=== PATIENT | female | born 1970 | race Caucasian/White ===

== ENCOUNTER 2016-10-28 10:04 | Emergency (ER) | payer SELFPAY ==
[~2016-10-28] VITALS: Ht 172.7 cm; Wt 90.0 kg
[2016-10-28 10:06] VITALS: BP 122/90; PULSE 84; RESP 20; TEMP 98; O2SAT 98
[2016-10-28] MEDS ORDERED: SODIUM CHLOR 0.9% 1000 ML INJ 1,000 ML IV SCH (10:19)
--- NOTE | 2016-10-28 10:24 | PD ---
HPI Chief Complaint: Abdominal Pain Time Seen by Provider: 10:19 Travel History International Travel<30 days: No Contact w/Intl Traveler<30days: No Traveled to known affect area: No History of Present Illness HPI The patient is a 45-year-old female who presents emergency department for abdominal pain. The patient notes a three-day history of nausea, vomiting, was so scar right lower quadrant abdominal pain. The abdominal pain is sharp, constant, worse with palpation. She does have a previous history of abdominal surgeries including cholecystectomy and removal of the left fallopian tube and left ovary. She has intermittent menstrual cycles, is currently going through menopause, denies . She also complains of dark colored urine with possible blood, denies any dysuria, frequency, or urgency. She denies any current vaginal bleeding. Symptoms have been ongoing for 3 days, moderate, worse with palpation, and there are no current alleviating factors. The patient recently moved to the local area from [place] 2 weeks ago and does not have a local primary physician. She denies any fever, chills, or sweats. [facility] Past Medical History Medical History: Denies Significant Hx ?: Not Past Surgical History Abdominal Surgery: Yes Social History Alcohol Use: No Tobacco Use: Yes Substance Use: No Allergies-Medications (Allergen,Severity, Reaction): Coded Allergies: Vancomycin (Verified Allergy, Intermediate, 10/28/16) Nonsteroidal Anti-Inflammatory Agts (Verified Allergy, Mild, 10/28/16) Reported Meds & Prescriptions Reported Meds & Active Scripts Active No Active Prescriptions or Reported Medications Review of Systems Except as stated in HPI: all other systems reviewed are Neg General / Constitutional: No: Fever, Chills HENT: No: Lightheadedness Cardiovascular: No: Chest Pain or Discomfort Respiratory: No: Shortness of Breath Gastrointestinal: Positive: Nausea, Vomiting, Abdominal Pain, No: Diarrhea Genitourinary: Positive: Hematuria, No: Dysuria Physical Exam Narrative GENERAL: Awake, alert, pleasant 45-year-old female who appears her stated age and is in no acute respiratory distress. SKIN: Focused skin assessment warm/dry. HEAD: Atraumatic. Normocephalic. EYES: Pupils equal and round. No scleral icterus. No injection or drainage. ENT: No nasal bleeding or discharge. Slightly dry mucous membranes. NECK: Trachea midline. No JVD. CARDIOVASCULAR: Regular rate and rhythm. No murmur appreciated. RESPIRATORY: No accessory muscle use. Clear to auscultation. Breath sounds equal bilaterally. GASTROINTESTINAL: Abdomen soft, tender to palpation right lower quadrant. No guarding or rigidity. Well-healed midline abdominal scar. Back: No CVA tenderness. MUSCULOSKELETAL: No obvious deformities. No clubbing. No cyanosis. No edema. NEUROLOGICAL: Awake and alert. No obvious cranial nerve deficits. Motor grossly within normal limits. Normal speech. PSYCHIATRIC: Appropriate mood and affect; insight and judgment normal. Data Data Last Documented VS Vital Signs Date Time Temp Pulse Resp B/P Pulse Ox O2 Delivery O2 Flow Rate FiO2 10/28/16 12:27 16 10/28/16 10:55 95 Room Air 10/28/16 10:06 98.0 84 122/90 Orders Complete Blood Count With Diff (10/28/16 10:19) Comprehensive Metabolic Panel (10/28/16 10:19) Lipase (10/28/16 10:19) Lactic Acid (10/28/16 10:19) Urinalysis - C+S If Indicated (10/28/16 10:19) Ct Abd/Pel W/O Iv Contrast (10/28/16 10:19) Iv Access Insert/Monitor (10/28/16 10:19) Ecg Monitoring (10/28/16 10:19) Oximetry (10/28/16 10:19) Morphine Inj (Morphine Inj) (10/28/16 10:30) Ondansetron Inj (Zofran Inj) (10/28/16 10:30) Sodium Chlor 0.9% 1000 Ml Inj (Ns 1000 M (10/28/16 10:19) Sodium Chloride 0.9% Flush (Ns Flush) (10/28/16 10:30) Ed Urine Pregnancytest Poc (10/28/16 10:19) Urine Culture (10/28/16 10:53) Vascular Access Team Consult/P PRN (10/28/16 11:57) Vascular Poc Ultrasound (10/28/16 ) Ceftriaxone Inj (Rocephin Inj) (10/28/16 12:45) Labs Laboratory Tests Test 10/28/16 10/28/16 10/28/16 10:53 11:00 11:01 Urine Color YELLOW Urine Turbidity HAZY Urine pH 6.5 Urine Specific Avery 1.013 Urine Protein TRACE mg/dL Urine Glucose (UA) NEG mg/dL Urine Ketones NEG mg/dL Urine Occult Blood LARGE Urine Nitrite NEG Urine Bilirubin NEG Urine Urobilinogen LESS THAN 2.0 MG/DL Urine Leukocyte Esterase SMALL Urine RBC /hpf Urine WBC 49 /hpf Urine Squamous Epithelial 10 /hpf Cells Urine Bacteria MOD /hpf Microscopic Urinalysis Comment CULTURE INDICATED Sodium Level 137 MEQ/L Potassium Level 4.4 MEQ/L Chloride Level 107 MEQ/L Carbon Dioxide Level 23.3 MEQ/L Anion Gap 7 MEQ/L Blood Urea Nitrogen 12 MG/DL Creatinine 0.74 MG/DL Estimat Glomerular Filtration 85 ML/MIN Rate Random Glucose 84 MG/DL Calcium Level 9.3 MG/DL Total Bilirubin 0.6 MG/DL Aspartate Amino Transf 19 U/L (AST/SGOT) Alanine Aminotransferase 42 U/L (ALT/SGPT) Alkaline Phosphatase 81 U/L Total Protein 7.7 GM/DL Albumin 3.7 GM/DL Lipase 82 U/L White Blood Count 9.4 TH/MM3 Red Blood Count 5.33 MIL/MM3 Hemoglobin 15.3 GM/DL Hematocrit 46.1 % Mean Corpuscular Volume 86.6 FL Mean Corpuscular Hemoglobin 28.8 PG Mean Corpuscular Hemoglobin 33.2 % Concent Red Cell Distribution Width 14.2 % Platelet Count 146 TH/MM3 Mean Platelet Volume 10.5 FL Neutrophils (%) (Auto) 74.2 % Lymphocytes (%) (Auto) 18.3 % Monocytes (%) (Auto) 5.1 % Eosinophils (%) (Auto) 2.0 % Basophils (%) (Auto) 0.4 % Neutrophils # (Auto) 7.0 TH/MM3 Lymphocytes # (Auto) 1.7 TH/MM3 Monocytes # (Auto) 0.5 TH/MM3 Eosinophils # (Auto) 0.2 TH/MM3 Basophils # (Auto) 0.0 TH/MM3 CBC Comment DIFF FINAL Differential Comment Lactic Acid Level 1.4 mmol/L [facility] Medical Decision Making Medical Screen Exam Complete: Yes Emergency Medical Condition: Yes Medical Record Reviewed: Yes Interpretation(s) Laboratory Tests Test 10/28/16 10/28/16 10/28/16 10:53 11:00 11:01 Urine Color YELLOW Urine Turbidity HAZY Urine pH 6.5 Urine Specific Avery 1.013 Urine Protein TRACE mg/dL Urine Glucose (UA) NEG mg/dL Urine Ketones NEG mg/dL Urine Occult Blood LARGE Urine Nitrite NEG Urine Bilirubin NEG Urine Urobilinogen LESS THAN 2.0 MG/DL Urine Leukocyte Esterase SMALL Urine RBC /hpf Urine WBC 49 /hpf Urine Squamous Epithelial 10 /hpf Cells Urine Bacteria MOD /hpf Microscopic Urinalysis Comment CULTURE INDICATED Sodium Level 137 MEQ/L Potassium Level 4.4 MEQ/L Chloride Level 107 MEQ/L Carbon Dioxide Level 23.3 MEQ/L Anion Gap 7 MEQ/L Blood Urea Nitrogen 12 MG/DL Creatinine 0.74 MG/DL Estimat Glomerular Filtration 85 ML/MIN Rate Random Glucose 84 MG/DL Calcium Level 9.3 MG/DL Total Bilirubin 0.6 MG/DL Aspartate Amino Transf 19 U/L (AST/SGOT) Alanine Aminotransferase 42 U/L (ALT/SGPT) Alkaline Phosphatase 81 U/L Total Protein 7.7 GM/DL Albumin 3.7 GM/DL Lipase 82 U/L White Blood Count 9.4 TH/MM3 Red Blood Count 5.33 MIL/MM3 Hemoglobin 15.3 GM/DL Hematocrit 46.1 % Mean Corpuscular Volume 86.6 FL Mean Corpuscular Hemoglobin 28.8 PG Mean Corpuscular Hemoglobin 33.2 % Concent Red Cell Distribution Width 14.2 % Platelet Count 146 TH/MM3 Mean Platelet Volume 10.5 FL Neutrophils (%) (Auto) 74.2 % Lymphocytes (%) (Auto) 18.3 % Monocytes (%) (Auto) 5.1 % Eosinophils (%) (Auto) 2.0 % Basophils (%) (Auto) 0.4 % Neutrophils # (Auto) 7.0 TH/MM3 Lymphocytes # (Auto) 1.7 TH/MM3 Monocytes # (Auto) 0.5 TH/MM3 Eosinophils # (Auto) 0.2 TH/MM3 Basophils # (Auto) 0.0 TH/MM3 CBC Comment DIFF FINAL Differential Comment Lactic Acid Level 1.4 mmol/L Differential Diagnosis Differential diagnosis includes appendicitis, right ovarian torsion, nephrolithiasis, pyelonephritis, diverticulitis, partial small bowel obstruction. Narrative Course IV was established, labs are drawn and sent, and the patient was placed on cardiac telemetry monitoring and continuous pulse oximetry monitoring. The patient was administer morphine, Zofran, and IV fluids for her symptoms. UA was sent to lab and bedside UA test was obtained. CT of the abdomen and pelvis was ordered to rule out appendicitis/nephrolithiasis. UA has innumerable RBCs, also has WBCs, most likely hemorrhagic cystitis. CT the abdomen and pelvis reveals no evidence of nephrolithiasis active on the right side or appendicitis. The patient does appear to have some chronic changes and may need outpatient ultrasound. The patient was reevaluated, her pain had improved, however, she still had mild discomfort. Therefore, the patient was administered morphine intravenously. She will be discharged home on antiemetics , prior radium, Bactrim, and pain medications as directed. She is advised to return if symptoms worsen or progress. Diagnosis Primary Impression: Hemorrhagic cystitis Additional Impression: Abdominal pain Qualified Code: R10.30 - Lower abdominal pain Patient Instructions: General Instructions, Narcotic given in the ED Additional Instructions: Medications as directed. Follow-up with your primary physician. Return if symptoms worsen or progress. Med/Other Pt SpecificInfo: Prescription(s) given Scripts Ondansetron Odt (Zofran Odt)4 Mg Tab4 Mg SL Q6HR PRN (Nausea/Vomiting) #7 TAB Ref 0 Prov:Sher Garcia MD 10/28/16 Hydrocodone-Acetaminophen (Fifield)5-325 mg Tab1 Tab PO Q6H PRN (PAIN) #12 TAB Ref 0 Prov:Sher Garcia MD 10/28/16 Sulfamethoxazole-Trimethoprim (Bactrim DS)800-160 Mg Tab1 Tab PO BID #14 TAB Ref 0 Prov:Sher Garcia MD 10/28/16 Phenazopyridine (Pyridium)100 Mg Ycc072 Mg PO Q8H PRN (DYSURIA) 2 Days Ref 0 Prov:Shre Garcia MD 10/28/16 Disposition: 01 DISCHARGE HOME Condition: Stable Sher Garcia MD Oct 28, 2016 10:24
[2016-10-28] MEDS ORDERED: SODIUM CHLORIDE 0.9% FLUSH 10 ML FLUSH IV FLUSH PRN (10:30)
[2016-10-28] MEDS ORDERED: ONDANSETRON HCL 4 MG/2 ML VIAL IVP ONE (10:30)
[2016-10-28] MEDS ORDERED: MORPHINE SULFATE 4 MG/ML INJ IV PUSH ONE ×2 (10:30→13:00)
[2016-10-28 10:55] VITALS: O2SAT 95
[2016-10-28 11:18] LABS: BACTERIA, URINE MOD /hpf; BLOOD, URINE LARGE (NEG); COMMENT (UR) CULTURE INDICATED; CULTURE IF INDICATED CULTURE INDICATED; GLUCOSE,URINE NEG (NEG); KETONE, URINE NEG (NEG); NITRITE,URINE NEG (NEG); PH, URINE 6.5 (5.0-8.5); SQUAMOUS EPITHELIAL CELL URINE 10 /hpf (0-5); URINE COLOR YELLOW (YELLW/STRAW)
[2016-10-28 11:31] LABS: BASOPHIL % 0.4 % (0.0-2.0); EOSINOPHIL # 0.2 TH/MM3 (0-0.4); HEMATOCRIT 46.1 % (35.0-46.0); HEMO FLAGS DIFF FINAL; LYMPH % 18.3 % (9.0-44.0); LYMPHOCYTE # 1.7 TH/MM3 (1.0-4.8); MEAN CELL VOLUME 86.6 FL (80.0-100.0); MEAN CORPUSCULAR HEMOGLOBIN 28.8 PG (27.0-34.0); MEAN CORPUSCULAR HGB CONC 33.2 % (32.0-36.0); MONO % 5.1 % (0.0-8.0); NEUT % 74.2 % (16.0-70.0); PLATELET COUNT 146 TH/MM3 (150-450); RED BLOOD COUNT 5.33 MIL/MM3 (4.00-5.30); RED CELL DISTRIBUTION WIDTH 14.2 % (11.6-17.2); WHITE BLOOD COUNT 9.4 TH/MM3 (4.0-11.0)
[2016-10-28 11:52] LABS: ALT (GPT) 42 U/L (10-53); ANION GAP 7 MEQ/L (5-15); AST (GOT) 19 U/L (15-37); BICARBONATE 23.3 MEQ/L (21.0-32.0); BLOOD UREA NITROGEN 12 MG/DL (7-18); CHLORIDE 107 MEQ/L (98-107); GLOMERULAR FILTRATION RATE 85 ML/MIN (>89); POTASSIUM 4.4 MEQ/L (3.5-5.1); SODIUM (NA) 137 MEQ/L (136-145)
[2016-10-28 11:54] LABS: ALKALINE PHOSPHATASE 81 U/L (45-117); TOTAL BILIRUBIN ADULT 0.6 MG/DL (0.2-1.0)
--- NOTE | 2016-10-28 12:15 | RADRPT ---
EXAM DATE/TIME: 10/28/2016 11:47 [facility] COMPARISON: No previous studies available for comparison. INDICATIONS : Right lower abdomen pain for 3 days. ORAL CONTRAST: No oral contrast ingested. RADIATION DOSE: 9.43 CTDIvol (mGy) MEDICAL HISTORY : SURGICAL HISTORY : Cholecystectomy. Tubal ligation.Hysterectomy. ENCOUNTER: Initial ACUITY: 3 days PAIN SCALE: 4/10 LOCATION: Right lower quadrant TECHNIQUE: Volumetric scanning of the abdomen and pelvis was performed. Using automated exposure control and ad justment of the mA and/or kV according to patient size, radiation dose was kept as low as reasonably achievable to obtain optimal diagnostic quality images. FINDINGS: LOWER LUNGS: Fibrotic scarring is noted within the left lung base. LIVER: Mild hepatomegaly is noted. Homogeneous density without lesion. There is no dilation of the biliary tree. No gallstones. The patient is status post cholecystectomy. SPLEEN: Mild splenomegaly is noted. PANCREAS: Within normal limits. KIDNEYS: There is a tiny 5 mm hyperdense focus within the upper pole of the left kidney consistent with possib le tiny hyperdense cyst or faintly calcified stone. No hydronephrosis is noted. ADRENAL GLANDS: Within normal limits. VASCULAR: There is no aortic aneurysm. BOWEL/MESENTERY: The stomach, small bowel, and colon demonstrate no acute abnormality. There is no free intraperitone al air or fluid. ABDOMINAL WALL: Within normal limits. RETROPERITONEUM: There is no lymphadenopathy. BLADDER: No wall thickening or mass. REPRODUCTIVE: There is a 2.5 cm nodule in the expected region of the right side of the lower uterine segment/cervix and consistent with possible small fibroid. Outpatient pelvic ultrasound may be helpful for further evaluation if clinically indicated. INGUINAL: There is no lymphadenopathy or hernia. MUSCULOSKELETAL: Within normal limits for patient age. CONCLUSION: 1. Mild hepatosplenomegaly. 2. 5 mm hyperdense focus within the upper pole of the left kidney consistent with tiny hyperdense cys t or possible faintly calcified stone. 3. No acute obstructive uropathy. 4. 2.5 cm nodule within the right side of the lower uterine segment/cervix consistent with possible f ibroid. Outpatient pelvic ultrasound maybe helpful for further evaluation if clinically indicated. William Pritchett MD on October 28, 2016 at 12:03 Board Certified Radiologist. This report was verified electronically.
[2016-10-28] MEDS ORDERED: cefTRIAXone INJ 1,000 MG in SODIUM CHLORIDE 0.9% INJ 100 ML IV ONE (12:45)
[2016-10-28] MEDS ORDERED: SODIUM CHLORID 0.9% 500 ML INJ 500 ML IV ONE (13:00)
[2016-10-28] MEDS ORDERED: ZOFR4TAB3 SL (13:01)
[2016-10-28] MEDS ORDERED: BACT800T5 PO (13:01)
[2016-10-28] MEDS ORDERED: PHEN0.4T PO (13:01)
[2016-10-28] MEDS ORDERED: NORC5TAB PO (13:01)
[2016-10-28 14:14] VITALS: BP 109/56; PULSE 76; RESP 18; O2SAT 97
== END 2016-10-28 17:49 | disposition home or self-care (01) ==
LOC: NEPC 10:04
DX: N30.91 Cystitis, unspecified with hematuria (principal); B96.89 Other specified bacterial agents as the cause of diseases classified elsewhere
CPT/HCPCS: 74176; 80053; 81001; 83605; 83690; 84703; 85025; 87086; 96361; 96365; 96375; 99285; J0696; J2270; J2405; J7030; J7040

== ENCOUNTER 2016-11-02 10:05 | Emergency (ER) | payer SELFPAY ==
[~2016-11-02] VITALS: Ht 165.1 cm; Wt 65.0 kg
[~2016-11-02 10:05] MED LIST: BACT800T5 PO; NORC5TAB PO; PHEN0.4T PO; ZOFR4TAB3 SL
[2016-11-02 10:13] VITALS: BP 122/85; PULSE 75; RESP 16; TEMP 98.1; O2SAT 97
--- NOTE | 2016-11-02 11:58 | PD ---
HPI Chief Complaint: Abdominal Pain Time Seen by Provider: 11:21 Travel History International Travel<30 days: No Contact w/Intl Traveler<30days: No Traveled to known affect area: No History of Present Illness HPI 45yo F with no PMH presents to the ED with c/o suprapubic abdominal pain since yesterday. NBNB vomiting. Pt was seen at [facility] on 10/28/16 for hemorrhagic cystitis. States her hematuria has resolved. Denies any fever, chest pain, sob , diarrhea, dysuria, vaginal bleeding or discharge. Last BM normal today. PFSH Past Medical History Medical History: Denies Significant Hx Diminished Hearing: No Influenza Vaccination: No ?: Not LMP: 09/18/2016 : 5 Para: 4 Miscarriage: 1 Ovarian Cysts: Yes (rupture) Tubal Ligation: Yes Past Surgical History Abdominal Surgery: Yes Cholecystectomy: Yes Gynecologic Surgery: Yes (left ovary and fallopian tube removal) Social History Alcohol Use: No Tobacco Use: Yes (1 ppd) Substance Use: No Allergies-Medications (Allergen,Severity, Reaction): Coded Allergies: Vancomycin (Verified Allergy, Intermediate, 11/02/16) Nonsteroidal Anti-Inflammatory Agts (Verified Allergy, Mild, 11/02/16) Reported Meds & Prescriptions Reported Meds & Active Scripts Active No Active Prescriptions or Reported Medications Review of Systems Except as stated in HPI: all other systems reviewed are Neg Physical Exam Narrative GENERAL: 45yo F not in distress. SKIN: Focused skin assessment warm/dry. HEAD: Atraumatic. Normocephalic. CARDIOVASCULAR: Regular rate and rhythm. No murmur appreciated. RESPIRATORY: No accessory muscle use. Clear to auscultation. Breath sounds equal bilaterally. GASTROINTESTINAL: Abdomen soft, +Suprapubic ttp. No rebound tenderness or guarding. MUSCULOSKELETAL: No obvious deformities. No clubbing. No cyanosis. No edema. NEUROLOGICAL: Awake and alert. No obvious cranial nerve deficits. Motor grossly within normal limits. Normal speech. PSYCHIATRIC: Appropriate mood and affect; insight and judgment normal. Data Data Last Documented VS Vital Signs Date Time Temp Pulse Resp B/P Pulse Ox O2 Delivery O2 Flow Rate FiO2 11/02/16 12:59 96 Room Air 11/02/16 10:13 98.1 75 16 122/85 Orders Complete Blood Count With Diff (11/02/16 11:49) Comprehensive Metabolic Panel (11/02/16 11:49) Lipase (11/02/16 11:49) Urinalysis - C+S If Indicated (11/02/16 11:49) Iv Access Insert/Monitor (11/02/16 11:49) Ecg Monitoring (11/02/16 11:49) Oximetry (11/02/16 11:49) Morphine Inj (Morphine Inj) (11/02/16 12:00) Ondansetron Inj (Zofran Inj) (11/02/16 12:00) Sodium Chloride 0.9% Flush (Ns Flush) (11/02/16 12:00) Vascular Access Team Consult/P PRN (11/02/16 11:50) Vascular Poc Ultrasound (11/02/16 ) Labs Laboratory Tests Test 11/02/16 11/02/16 12:45 12:50 Urine Color YELLOW Urine Turbidity HAZY Urine pH 6.5 Urine Specific [place] 1.016 Urine Protein NEG mg/dL Urine Glucose (UA) NEG mg/dL Urine Ketones NEG mg/dL Urine Occult Blood NEG Urine Nitrite NEG Urine Bilirubin NEG Urine Urobilinogen LESS THAN 2.0 MG/DL Urine Leukocyte Esterase NEG Urine WBC 2 /hpf Urine Squamous Epithelial 8 /hpf Cells Urine Bacteria OCC /hpf Urine Mucus FEW /lpf Microscopic Urinalysis Comment CULT NOT INDICATED White Blood Count 6.1 TH/MM3 Red Blood Count 4.74 MIL/MM3 Hemoglobin 13.8 GM/DL Hematocrit 40.9 % Mean Corpuscular Volume 86.4 FL Mean Corpuscular Hemoglobin 29.1 PG Mean Corpuscular Hemoglobin 33.7 % Concent Red Cell Distribution Width 13.4 % Platelet Count 160 TH/MM3 Mean Platelet Volume 10.2 FL Neutrophils (%) (Auto) 57.5 % Lymphocytes (%) (Auto) 32.4 % Monocytes (%) (Auto) 6.3 % Eosinophils (%) (Auto) 3.1 % Basophils (%) (Auto) 0.7 % Neutrophils # (Auto) 3.5 TH/MM3 Lymphocytes # (Auto) 2.0 TH/MM3 Monocytes # (Auto) 0.4 TH/MM3 Eosinophils # (Auto) 0.2 TH/MM3 Basophils # (Auto) 0.0 TH/MM3 CBC Comment DIFF FINAL Differential Comment Sodium Level 140 MEQ/L Potassium Level 3.7 MEQ/L Chloride Level 105 MEQ/L Carbon Dioxide Level 28.3 MEQ/L Anion Gap 7 MEQ/L Blood Urea Nitrogen 8 MG/DL Creatinine 0.74 MG/DL Estimat Glomerular Filtration 85 ML/MIN Rate Random Glucose 84 MG/DL Calcium Level 9.1 MG/DL Total Bilirubin 1.1 MG/DL Aspartate Amino Transf 18 U/L (AST/SGOT) Alanine Aminotransferase 29 U/L (ALT/SGPT) Alkaline Phosphatase 76 U/L Total Protein 7.7 GM/DL Albumin 3.8 GM/DL Lipase 65 U/L [facility] Medical Decision Making Medical Screen Exam Complete: Yes Emergency Medical Condition: Yes Differential Diagnosis Cystitis vs. colitis Narrative Course 45yo F with lower abdominal pain. Pt was just here 10/28/16 and had a CTa/p that showed 2.5cm nodule in right uterine segment that may be possible fibroid. Outpatient pelvic ultrasound may be helpful. Pt given morphine and zofran and reevaluated at bedside. States pain has improved. Pt no longer nauseous and tolerating PO. Labs reviewed, no leukocytosis. Lipase normal. LFTs normal. Bilirubin mildly elevated at 1.1. UA showed no leukocyte or nitrite. Pt is well appearing and vital signs normal. Instructed pt to follow up with [facility] as outpatient. Diagnosis Primary Impression: Abdominal pain Qualified Code: R10.30 - Lower abdominal pain Patient Instructions: General Instructions Departure Forms: Tests/Procedures Additional Instructions: Please follow up with [facility]. Return to the ED if symptoms worsen. Med/Other Pt SpecificInfo: Prescription(s) given Scripts No Active Prescriptions or Reported Meds Disposition: 01 DISCHARGE HOME Condition: Stable Gretta Martinez DO Nov 02, 2016 11:57
[2016-11-02] MEDS ORDERED: ONDANSETRON HCL 4 MG/2 ML VIAL IVP ONE (12:00)
[2016-11-02] MEDS ORDERED: MORPHINE SULFATE 4 MG/ML INJ IV PUSH ONE (12:00)
[2016-11-02] MEDS ORDERED: SODIUM CHLORIDE 0.9% FLUSH 10 ML FLUSH IV FLUSH PRN (12:00)
[2016-11-02 12:59] VITALS: O2SAT 96
[2016-11-02 13:07] LABS: AUTOMATED NEUTROPHIL # 3.5 TH/MM3 (1.8-7.7); BASOPHIL % 0.7 % (0.0-2.0); EOSINOPHIL # 0.2 TH/MM3 (0-0.4); EOSINOPHIL % 3.1 % (0.0-4.0); HEMATOCRIT 40.9 % (35.0-46.0); HEMO FLAGS DIFF FINAL; LYMPH % 32.4 % (9.0-44.0); MEAN CELL VOLUME 86.4 FL (80.0-100.0); MEAN CORPUSCULAR HEMOGLOBIN 29.1 PG (27.0-34.0); MEAN CORPUSCULAR HGB CONC 33.7 % (32.0-36.0); MONO % 6.3 % (0.0-8.0); NEUT % 57.5 % (16.0-70.0); PLATELET COUNT 160 TH/MM3 (150-450); RED BLOOD COUNT 4.74 MIL/MM3 (4.00-5.30); RED CELL DISTRIBUTION WIDTH 13.4 % (11.6-17.2); WHITE BLOOD COUNT 6.1 TH/MM3 (4.0-11.0)
[2016-11-02 13:25] LABS: BACTERIA, URINE OCC /hpf; BLOOD, URINE NEG (NEG); COMMENT (UR) CULT NOT INDICATED; CULTURE IF INDICATED CULT NOT INDICATED; GLUCOSE,URINE NEG (NEG); KETONE, URINE NEG (NEG); MUCUS URINE FEW /lpf (OCC); NITRITE,URINE NEG (NEG); PH, URINE 6.5 (5.0-8.5); SQUAMOUS EPITHELIAL CELL URINE 8 /hpf (0-5); URINE COLOR YELLOW (YELLW/STRAW)
[2016-11-02 13:27] LABS: ANION GAP 7 MEQ/L (5-15); AST (GOT) 18 U/L (15-37); BICARBONATE 28.3 MEQ/L (21.0-32.0); BLOOD UREA NITROGEN 8 MG/DL (7-18); CHLORIDE 105 MEQ/L (98-107); GLOMERULAR FILTRATION RATE 85 ML/MIN (>89); POTASSIUM 3.7 MEQ/L (3.5-5.1); SODIUM (NA) 140 MEQ/L (136-145)
[2016-11-02 13:30] LABS: ALKALINE PHOSPHATASE 76 U/L (45-117); ALT (GPT) 29 U/L (10-53); TOTAL BILIRUBIN ADULT 1.1 MG/DL (0.2-1.0)
[2016-11-02 15:34] VITALS: BP 107/70; PULSE 64; RESP 15; O2SAT 97
== END 2016-11-02 15:50 | disposition home or self-care (01) ==
LOC: NEPC 10:05
DX: R10.33 Periumbilical pain (principal); F17.210 Nicotine dependence, cigarettes, uncomplicated
CPT/HCPCS: 80053; 81001; 83690; 85025; 96374; 96375; 99284; J2270; J2405

== ENCOUNTER 2016-11-27 11:11 | Emergency (ER) | payer SELFPAY ==
[~2016-11-27] VITALS: Ht 172.7 cm; Wt 85.0 kg
[2016-11-27 11:13] VITALS: BP 110/77; PULSE 82; RESP 16; TEMP 98.2; O2SAT 100
[2016-11-27] MEDS ORDERED: TYLE325T PO (11:35)
[2016-11-27] MEDS ORDERED: PRED20 PO (11:40)
[2016-11-27] MEDS ORDERED: ROBA500T PO (11:40)
--- NOTE | 2016-11-27 11:41 | PD ---
HPI Chief Complaint: Pain: Acute or Chronic Time Seen by Provider: 11:15 Travel History International Travel<30 days: No Contact w/Intl Traveler<30days: No Traveled to known affect area: No History of Present Illness HPI 46-year-old female presents emergency department for evaluation of the left shoulder pain. Symptom onset 3 days. Patient reports history of arthritis and tendinitis in the right shoulder and reports this pain is similar to that. She reports the pain is worse with range of motion of the left arm. The pain is unrelieved with [id number] Tylenol. She denies injury or trauma. She denies chest pain, shortness of breath, nausea, vomiting, diaphoresis. PFSH Past Medical History Narrative Medical History of arthritis Diminished Hearing: No ?: Not : 5 Para: 4 Miscarriage: 1 Ovarian Cysts: Yes (rupture) Tubal Ligation: Yes Past Surgical History Abdominal Surgery: Yes Cholecystectomy: Yes Gynecologic Surgery: Yes (left ovary and fallopian tube removal) Social History Alcohol Use: No Tobacco Use: Yes (1 ppd) Substance Use: No Allergies-Medications (Allergen,Severity, Reaction): Coded Allergies: Vancomycin (Verified Allergy, Intermediate, 11/02/16) Nonsteroidal Anti-Inflammatory Agts (Verified Allergy, Mild, 11/02/16) Reported Meds & Prescriptions Reported Meds & Active Scripts Active No Active Prescriptions or Reported Medications Review of Systems Except as stated in HPI: all other systems reviewed are Neg General / Constitutional: No: Fever Eyes: No: Visual changes HENT: No: Headaches Cardiovascular: No: Chest Pain or Discomfort Respiratory: No: Shortness of Breath Gastrointestinal: No: Abdominal Pain Genitourinary: No: Dysuria Musculoskeletal: Positive: Other (left shoulder pain) Skin: No Rash Neurologic: No: Weakness Physical Exam Narrative GENERAL: Alert, well-appearing female no acute distress. SKIN: Focused skin assessment warm/dry. HEAD: Atraumatic. Normocephalic. EYES: Pupils equal and round. No scleral icterus. No injection or drainage. ENT: No nasal bleeding or discharge. Mucous membranes pink and moist. NECK: Trachea midline. No JVD. CARDIOVASCULAR: Regular rate and rhythm. No murmur appreciated. RESPIRATORY: No accessory muscle use. Clear to auscultation. Breath sounds equal bilaterally. GASTROINTESTINAL: Abdomen soft, non-tender, nondistended. Hepatic and splenic margins not palpable. MUSCULOSKELETAL: No obvious deformities. No clubbing. No cyanosis. No edema. Left shoulder: The joint is mildly tender to palpation. Patient has pain with range of motion of the left shoulder. No deformity. 2+ distal pulses. NEUROLOGICAL: Awake and alert. No obvious cranial nerve deficits. Motor grossly within normal limits. Normal speech. PSYCHIATRIC: Appropriate mood and affect; insight and judgment normal. Data Data Last Documented VS Vital Signs Date Time Temp Pulse Resp B/P Pulse Ox O2 Delivery O2 Flow Rate FiO2 11/27/16 11:13 98.2 82 16 110/77 100 MDM Medical Decision Making Medical Screen Exam Complete: Yes Emergency Medical Condition: Yes Differential Diagnosis Arthritis, tendinitis, strain Narrative Course 46-year-old female with three-day history of left shoulder pain. Patient reports this pain is similar to her arthritis in her right shoulder. The pain is reproducible with palpation and range of motion of the joint. I do not suspect that this is cardiac in nature. Patient reports symptoms are unrelieved with [id number] Tylenol. She has had symptom relief in the past with steroids and muscle relaxers. On exam patient has reproducible pain in the left shoulder as well as tenderness over the left trapezius muscle. Patient will be treated for probable left shoulder arthritis and trapezius muscle spasm. Return precautions discussed. Patient verbalizes understanding Diagnosis Primary Impression: Left shoulder pain Qualified Code: M25.512 - Acute pain of left shoulder Referrals: Primary Care Physician Additional Instructions: Use a sling as needed for comfort. Take the medications as prescribed. Follow-up with her primary care doctor for reevaluation. Return to the emergency department if he developed new or worsening symptoms. Scripts Methocarbamol (Robaxin)500 Mg [id number] Mg PO TID PRN (MUSCLE SPASM) #12 TAB Prov:Charlette Vee 11/27/16 Prednisone 20 Mg Tab40 Mg PO DAILY #10 TAB Take 40 mg (2 tablets) daily for 5 days Prov:Charlette Vee 11/27/16 Disposition: 01 DISCHARGE HOME Condition: Stable Charlette Vee Nov 27, 2016 11:41
[2016-11-27] MEDS ORDERED: ORPHENADRINE INJ 60 MG/2 ML AMP IM ONE (11:45)
== END 2016-11-27 12:04 | disposition home or self-care (01) ==
LOC: NEPK 11:11
DX: M25.512 Pain in left shoulder (principal); F17.210 Nicotine dependence, cigarettes, uncomplicated; M19.90 Unspecified osteoarthritis, unspecified site
CPT/HCPCS: 96372; 99284; J2360

== ENCOUNTER 2016-12-05 09:25 | Emergency (ER) | payer SELFPAY ==
[~2016-12-05] VITALS: Ht 175.3 cm; Wt 85.0 kg
[~2016-12-05 09:25] MED LIST changes: -BACT800T5 PO; -NORC5TAB PO; -PHEN0.4T PO; +PRED20 PO; +ROBA500T PO; +TYLE325T PO; -ZOFR4TAB3 SL
[2016-12-05 09:26] VITALS: BP 114/81; PULSE 106; RESP 20; TEMP 98.4; O2SAT 98
[2016-12-05] MEDS ORDERED: ONDANSETRON HCL 4 MG/2 ML VIAL IVP ONE (09:45)
[2016-12-05] MEDS ORDERED: SODIUM CHLORIDE 0.9% FLUSH 10 ML FLUSH IV FLUSH PRN (09:45)
[2016-12-05] MEDS ORDERED: MORPHINE SULFATE 8 MG/ML INJ IV PUSH ONE (10:15)
[2016-12-05] MEDS ORDERED: SODIUM CHLOR 0.9% 1000 ML INJ 1,000 ML IV ONE (10:15)
--- NOTE | 2016-12-05 10:16 | PD ---
HPI Chief Complaint: GI Complaint Time Seen by Provider: 09:35 Travel History International Travel<30 days: No Contact w/Intl Traveler<30days: No Traveled to known affect area: No History of Present Illness HPI 46-year-old female with history of cholecystectomy, bilateral tubal ligation, left salpingectomy oophorectomy here with complaint of abdominal pain. Patient has had 4 days of nausea, vomiting. 2 days of epigastric abdominal pain that radiates slightly to the right upper quadrant. She has also had dark urine, questionable hematuria. Per chart review, patient was seen here twice in October with similar complaints. Patient states that this does feel similar to history. She has not had any fevers, chills. She recently moved from [place] to [place]. She has been living with friends/family. She had medicated [place], but lost it when she moved but has already applied for [place] Medicaid. PFS Past Medical History Diminished Hearing: No ?: Not : 5 Para: 4 Miscarriage: 1 Ovarian Cysts: Yes (rupture) Tubal Ligation: Yes Past Surgical History Abdominal Surgery: Yes Cholecystectomy: Yes Gynecologic Surgery: Yes (left ovary and fallopian tube removal) Social History Alcohol Use: No Tobacco Use: Yes (1 ppd) Substance Use: No Allergies-Medications (Allergen,Severity, Reaction): Coded Allergies: Vancomycin (Verified Allergy, Intermediate, 11/27/16) Nonsteroidal Anti-Inflammatory Agts (Verified Allergy, Mild, 11/27/16) Reported Meds & Prescriptions Reported Meds & Active Scripts Active No Active Prescriptions or Reported Medications Review of Systems Except as stated in HPI: all other systems reviewed are Neg Physical Exam Narrative GENERAL: Well-appearing female in no acute distress SKIN: Focused skin assessment warm/dry. HEAD: Normocephalic. EYES: No scleral icterus. No injection or drainage. ENT: Mucous membranes pink and moist. NECK: Supple CARDIOVASCULAR: Regular rate and rhythm. No murmur appreciated. RESPIRATORY: No accessory muscle use. Clear to auscultation. Breath sounds equal bilaterally. GASTROINTESTINAL: Abdomen soft, epigastric abdominal tenderness to palpation without rebound or guarding, nondistended. No CVA tenderness palpation MUSCULOSKELETAL: No obvious deformities. No edema. NEUROLOGICAL: Awake and alert. Normal speech. PSYCHIATRIC: Appropriate mood and affect; insight and judgment normal. Data Data Last Documented VS Vital Signs Date Time Temp Pulse Resp B/P Pulse Ox O2 Delivery O2 Flow Rate FiO2 7/22/17 09:44 Room Air 12/05/16 09:26 98.4 106 20 114/81 98 Orders Complete Blood Count With Diff (12/05/16 09:43) Comprehensive Metabolic Panel (12/05/16 09:43) Lipase (12/05/16 09:43) Urinalysis - C+S If Indicated (12/05/16 09:43) Iv Access Insert/Monitor (12/05/16 09:43) Oximetry (12/05/16 09:43) Ondansetron Inj (Zofran Inj) (12/05/16 09:45) Sodium Chloride 0.9% Flush (Ns Flush) (12/05/16 09:45) Ed Urine Pregnancytest Poc (12/05/16 09:43) Morphine Inj (Morphine Inj) (12/05/16 10:15) Sodium Chlor 0.9% 1000 Ml Inj (Ns 1000 M (12/05/16 10:15) Labs Laboratory Tests Test 12/05/16 10:05 White Blood Count 9.1 TH/MM3 Red Blood Count 4.73 MIL/MM3 Hemoglobin 14.1 GM/DL Hematocrit 40.3 % Mean Corpuscular Volume 85.3 FL Mean Corpuscular Hemoglobin 29.7 PG Mean Corpuscular Hemoglobin 34.9 % Concent Red Cell Distribution Width 13.0 % Platelet Count 178 TH/MM3 Mean Platelet Volume 9.5 FL Neutrophils (%) (Auto) 76.1 % Lymphocytes (%) (Auto) 17.5 % Monocytes (%) (Auto) 4.6 % Eosinophils (%) (Auto) 1.3 % Basophils (%) (Auto) 0.5 % Neutrophils # (Auto) 6.9 TH/MM3 Lymphocytes # (Auto) 1.6 TH/MM3 Monocytes # (Auto) 0.4 TH/MM3 Eosinophils # (Auto) 0.1 TH/MM3 Basophils # (Auto) 0.0 TH/MM3 CBC Comment DIFF FINAL Differential Comment MDM Medical Decision Making Medical Screen Exam Complete: Yes Emergency Medical Condition: Yes Medical Record Reviewed: Yes Differential Diagnosis 46-year-old female with 4 days of nausea vomiting and 2 days of epigastric abdominal pain. Differential includes enteritis, pancreatitis, hepatobiliary pathology, peptic ulcer, recurrent tonic abdominal pain, UTI, ureterolithiasis. Her abdominal examination is benign making peritoneal pathology less likely. Narrative Course Patient placed on monitor, IV established and blood obtained. Given 1 L normal saline bolus, 4 mg Zofran, 4 mg morphine. Urine test was negative. CBC, CMP, lipase, urinalysis notable for markedly hematuria with some white cells. We'll treat for hemorrhagic cystitis. Patient was given outpatient referral to establish care here locally. Diagnosis Primary Impression: Hemorrhagic cystitis Referrals: [facility] call for appointment This is a clinic that sees patient's with and without insurance Additional Instructions: Finish antibiotics as prescribed. Nausea medications as needed. Follow-up with primary care physician to establish care as discussed. Med/Other Pt SpecificInfo: Prescription(s) given Scripts Promethazine (Phenergan)25 Mg [id number] Mg PO Q6H PRN (NAUSEA OR VOMITING) #10 TAB Ref 0 Prov:Sarah Osman MD 12/05/16 Ciprofloxacin (Cipro)250 Mg [id number] Mg PO BID 7 Days Ref 0 Prov:Sarah Osman MD 12/05/16 Disposition: 01 DISCHARGE HOME Condition: Stable Sarah Osman MD Dec 05, 2016 10:16
[2016-12-05 10:36] LABS: AUTOMATED NEUTROPHIL # 6.9 TH/MM3 (1.8-7.7); BASOPHIL % 0.5 % (0.0-2.0); EOSINOPHIL # 0.1 TH/MM3 (0-0.4); EOSINOPHIL % 1.3 % (0.0-4.0); HEMATOCRIT 40.3 % (35.0-46.0); HEMO FLAGS DIFF FINAL; LYMPH % 17.5 % (9.0-44.0); LYMPHOCYTE # 1.6 TH/MM3 (1.0-4.8); MEAN CELL VOLUME 85.3 FL (80.0-100.0); MEAN CORPUSCULAR HEMOGLOBIN 29.7 PG (27.0-34.0); MEAN CORPUSCULAR HGB CONC 34.9 % (32.0-36.0); MONO % 4.6 % (0.0-8.0); NEUT % 76.1 % (16.0-70.0); PLATELET COUNT 178 TH/MM3 (150-450); RED BLOOD COUNT 4.73 MIL/MM3 (4.00-5.30); WHITE BLOOD COUNT 9.1 TH/MM3 (4.0-11.0)
[2016-12-05 11:04] LABS: ALKALINE PHOSPHATASE 75 U/L (45-117)
[2016-12-05 11:04] LABS: BACTERIA, URINE RARE /hpf; BLOOD, URINE MOD (NEG); COMMENT (UR) CULT NOT INDICATED; CULTURE IF INDICATED CULT NOT INDICATED; GLUCOSE,URINE NEG (NEG); KETONE, URINE NEG (NEG); MUCUS URINE FEW /lpf (OCC); NITRITE,URINE NEG (NEG); PH, URINE 6.5 (5.0-8.5); SQUAMOUS EPITHELIAL CELL URINE 1 /hpf (0-5); TRANSITIONAL EPI CELLS, URINE <1 /hpf; URINE COLOR YELLOW (YELLW/STRAW)
[2016-12-05 11:06] LABS: ALT (GPT) 15 U/L (10-53); ANION GAP 9 MEQ/L (5-15); AST (GOT) 18 U/L (15-37); BLOOD UREA NITROGEN 10 MG/DL (7-18); CHLORIDE 106 MEQ/L (98-107); GLOMERULAR FILTRATION RATE 76 ML/MIN (>89); POTASSIUM 4.1 MEQ/L (3.5-5.1); SODIUM (NA) 140 MEQ/L (136-145)
[2016-12-05] MEDS ORDERED: CIPR250T52 PO (11:12)
[2016-12-05] MEDS ORDERED: PROM25TA10 PO (11:12)
== END 2016-12-05 11:24 | disposition home or self-care (01) ==
LOC: NEPD 09:25
DX: N30.91 Cystitis, unspecified with hematuria (principal)
CPT/HCPCS: 80053; 81001; 83690; 84703; 85025; 96374; 96375; 99284; J2270; J2405; J7030

== ENCOUNTER 2016-12-30 12:23 | Emergency (ER) | payer SELFPAY ==
[~2016-12-30] VITALS: Ht 175.3 cm; Wt 84.0 kg
[~2016-12-30 12:23] MED LIST changes: +CIPR250T52 PO; -PRED20 PO; +PROM25TA10 PO; -ROBA500T PO; -TYLE325T PO
[2016-12-30 12:29] VITALS: BP 123/83; PULSE 86; RESP 18; TEMP 98.2; O2SAT 96
--- NOTE | 2016-12-30 12:44 | PD ---
Physical Exam Date Seen by Provider: Dec 30, 2016 Time Seen by Provider: 12:43 Narrative 46 YOWF C/O R FLANK PAIN SINCE YEST WITH ASSOC N/V. NO FEVER OR URINARY SYMPTOMS. PAIN 12/24 VS REVIEWED PT WAITING FOR BED PLACEMENT. Data Data Last Documented VS Vital Signs Date Time Temp Pulse Resp B/P Pulse Ox O2 Delivery O2 Flow Rate FiO2 12/30/16 12:29 98.2 86 18 123/83 96 Room Air MDM Supervised Visit with [place]: Chadd Clark Dec 30, 2016 12:44
[2016-12-30 13:34] LABS: BACTERIA, URINE OCC /hpf; BLOOD, URINE MOD (NEG); COMMENT (UR) CULT NOT INDICATED; CULTURE IF INDICATED CULT NOT INDICATED; GLUCOSE,URINE NEG (NEG); KETONE, URINE NEG (NEG); NITRITE,URINE NEG (NEG); PH, URINE 8.5 (5.0-8.5); SQUAMOUS EPITHELIAL CELL URINE 37 /hpf (0-5); URINE COLOR YELLOW (YELLW/STRAW)
[2016-12-30] MEDS ORDERED: SODIUM CHLOR 0.9% 1000 ML INJ 1,000 ML IV SCH (13:40)
[2016-12-30] MEDS ORDERED: SODIUM CHLORIDE 0.9% FLUSH 10 ML FLUSH IV FLUSH PRN (13:45)
[2016-12-30] MEDS ORDERED: MORPHINE SULFATE 4 MG/ML INJ IV PUSH ONE (13:45)
[2016-12-30] MEDS ORDERED: ONDANSETRON HCL 4 MG/2 ML VIAL IVP ONE (13:45)
--- NOTE | 2016-12-30 13:51 | PD ---
HPI Chief Complaint: Complaint Time Seen by Provider: 13:32 Travel History International Travel<30 days: No Contact w/Intl Traveler<30days: No Traveled to known affect area: No History of Present Illness HPI Patient is a 46-year-old female who presents to emergency room with complaints of right-sided flank pain. Patient reports that since last night, she has had increased right sided flank pain,, denies urinary urgency or frequency. She reports that sometimes this pain radiates to the front of her abdomen. Patient denies any trauma, denies any fall. Patient denies history of kidney stones in the past. Reports that she is feeling nauseous with her symptoms. Patient with no other complaints. PFSH Past Medical History Medical History: Denies Significant Hx Diminished Hearing: No ?: Not LMP: 12/17/16 : 5 Para: 4 Miscarriage: 1 Ovarian Cysts: Yes (rupture) Tubal Ligation: Yes Past Surgical History Abdominal Surgery: Yes Cholecystectomy: Yes Gynecologic Surgery: Yes (left ovary and fallopian tube removal) Social History Alcohol Use: No Tobacco Use: Yes (1 ppd) Substance Use: No Allergies-Medications (Allergen,Severity, Reaction): Coded Allergies: vancomycin (Unverified Allergy, Intermediate, 12/29/16) diclofenac (Unverified Allergy, Mild, 12/29/16) etodolac (Unverified Allergy, Mild, 12/29/16) flurbiprofen (Unverified Allergy, Mild, 12/29/16) ibuprofen (Unverified Allergy, Mild, 12/29/16) indomethacin (Unverified Allergy, Mild, 12/29/16) ketoprofen (Unverified Allergy, Mild, 12/29/16) ketorolac (Unverified Allergy, Mild, 12/29/16) naproxen (Unverified Allergy, Mild, 12/29/16) oxaprozin (Unverified Allergy, Mild, 12/29/16) Reported Meds & Prescriptions Reported Meds & Active Scripts Active No Active Prescriptions or Reported Medications Review of Systems General / Constitutional: No: Fever Eyes: No: Visual changes HENT: No: Headaches Cardiovascular: No: Chest Pain or Discomfort Respiratory: No: Shortness of Breath Gastrointestinal: Positive: Nausea, Abdominal Pain Genitourinary: Positive: Flank Pain, No: Urgency, Frequency, Dysuria Musculoskeletal: No: Pain Skin: No Rash Neurologic: No: Weakness Psychiatric: No: Depression Endocrine: No: Polydipsia Hematologic/Lymphatic: No: Easy Bruising Physical Exam Narrative GENERAL: moderate distress SKIN: Focused skin assessment warm/dry. HEAD: Atraumatic. Normocephalic. EYES: Pupils equal and round. No scleral icterus. No injection or drainage. ENT: No nasal bleeding or discharge. Mucous membranes pink and moist. NECK: Trachea midline. No JVD. CARDIOVASCULAR: Regular rate and rhythm. No murmur appreciated. RESPIRATORY: No accessory muscle use. Clear to auscultation. Breath sounds equal bilaterally. GASTROINTESTINAL: Abdomen soft, non-tender, nondistended. patient with right sided flank pain MUSCULOSKELETAL: No obvious deformities. No clubbing. No cyanosis. No edema. NEUROLOGICAL: Awake and alert. No obvious cranial nerve deficits. Motor grossly within normal limits. Normal speech. PSYCHIATRIC: Appropriate mood and affect; insight and judgment normal. Data Data Last Documented VS Vital Signs Date Time Temp Pulse Resp B/P Pulse Ox O2 Delivery O2 Flow Rate FiO2 12/30/16 14:20 97 Room Air 12/30/16 14:00 79 17 96/62 12/30/16 12:29 98.2 Orders Complete Blood Count With Diff (12/30/16 12:47) Urinalysis - C+S If Indicated (12/30/16 12:47) Comprehensive Metabolic Panel (12/30/16 13:40) Lipase (12/30/16 13:40) Prothrombin Time / Inr (Pt) (12/30/16 13:40) Act Partial Throm Time (Ptt) (12/30/16 13:40) Ct Abd/Pel W/O Iv Contrast (12/30/16 13:40) Iv Access Insert/Monitor (12/30/16 13:40) Ecg Monitoring (12/30/16 13:40) Oximetry (12/30/16 13:40) Morphine Inj (Morphine Inj) (12/30/16 13:45) Ondansetron Inj (Zofran Inj) (12/30/16 13:45) Sodium Chlor 0.9% 1000 Ml Inj (Ns 1000 M (12/30/16 13:40) Sodium Chloride 0.9% Flush (Ns Flush) (12/30/16 13:45) Fentanyl Inj (Fentanyl Inj) (12/30/16 14:15) Vascular Access Team Consult/P PRN (12/30/16 14:29) Vascular Poc Ultrasound (12/30/16 ) Oxycodone-Acetamin 5-325 Mg (Percocet (12/30/16 15:00) Ondansetron Inj (Zofran Inj) (12/30/16 15:15) Labs Laboratory Tests Test 12/30/16 12/30/16 13:00 13:45 Urine Color YELLOW Urine Turbidity HAZY Urine pH 8.5 Urine Specific [place] 1.021 Urine Protein 30 mg/dL Urine Glucose (UA) NEG mg/dL Urine Ketones NEG mg/dL Urine Occult Blood MOD Urine Nitrite NEG Urine Bilirubin NEG Urine Urobilinogen 2.0 MG/DL Urine Leukocyte Esterase SMALL Urine RBC /hpf Urine WBC 7 /hpf Urine Squamous Epithelial 37 /hpf Cells Urine Bacteria OCC /hpf Microscopic Urinalysis Comment CULT NOT INDICATED White Blood Count 7.9 TH/MM3 Red Blood Count 4.89 MIL/MM3 Hemoglobin 14.0 GM/DL Hematocrit 42.0 % Mean Corpuscular Volume 85.9 FL Mean Corpuscular Hemoglobin 28.6 PG Mean Corpuscular Hemoglobin 33.3 % Concent Red Cell Distribution Width 13.6 % Platelet Count 182 TH/MM3 Mean Platelet Volume 8.5 FL Neutrophils (%) (Auto) 75.3 % Lymphocytes (%) (Auto) 17.6 % Monocytes (%) (Auto) 5.2 % Eosinophils (%) (Auto) 1.4 % Basophils (%) (Auto) 0.5 % Neutrophils # (Auto) 6.0 TH/MM3 Lymphocytes # (Auto) 1.4 TH/MM3 Monocytes # (Auto) 0.4 TH/MM3 Eosinophils # (Auto) 0.1 TH/MM3 Basophils # (Auto) 0.0 TH/MM3 CBC Comment DIFF FINAL Differential Comment Prothrombin Time 11.4 SEC Prothromb Time International 1.0 RATIO Ratio Activated Partial 33.5 SEC Thromboplast Time Sodium Level 137 MEQ/L Potassium Level 4.0 MEQ/L Chloride Level 106 MEQ/L Carbon Dioxide Level 24.3 MEQ/L Anion Gap 7 MEQ/L Blood Urea Nitrogen 6 MG/DL Creatinine 0.83 MG/DL Estimat Glomerular Filtration 74 ML/MIN Rate Random Glucose 88 MG/DL Calcium Level 9.0 MG/DL Total Bilirubin 0.7 MG/DL Aspartate Amino Transf 16 U/L (AST/SGOT) Alanine Aminotransferase 15 U/L (ALT/SGPT) Alkaline Phosphatase 63 U/L Total Protein 7.5 GM/DL Albumin 3.5 GM/DL Lipase 41 U/L MDM Medical Decision Making Medical Screen Exam Complete: Yes Emergency Medical Condition: Yes Interpretation(s) Vital Signs Date Time Temp Pulse Resp B/P Pulse Ox O2 Delivery O2 Flow Rate FiO2 12/30/16 12:29 98.2 86 18 123/83 96 Room Air Differential Diagnosis Differential includes kidney stones, pyelonephritis, electrolyte abnormality Narrative Course Patient is a 46-year-old female who presents to emergency room with complaints of right-sided flank pain which began last night. Denies history of kidney stones in the past, denies hematuria, urinary urgency or frequency or dysuria. Patient does have isolated flank pain on exam, plan to obtain CT of the abdomen pelvis to evaluate for possible kidney stone. Lab work including urinalysis ordered to evaluate for renal function as well as for signs of infection. Vital Signs Date Time Temp Pulse Resp B/P Pulse Ox O2 Delivery O2 Flow Rate FiO2 12/30/16 14:20 97 Room Air 12/30/16 14:00 79 17 96/62 97 Room Air 12/30/16 12:29 98.2 86 18 123/83 96 Room Air Laboratory Tests Test 12/30/16 12/30/16 13:00 13:45 Urine Color YELLOW (YELLW/STRAW) Urine Turbidity HAZY (CLEAR) Urine pH 8.5 (5.0-8.5) Urine Specific [place] 1.021 (1.002-1.035) Urine Protein 30 mg/dL (NEG-TRACE) Urine Glucose (UA) NEG mg/dL (NEG) Urine Ketones NEG mg/dL (NEG) Urine Occult Blood MOD (NEG) Urine Nitrite NEG (NEG) Urine Bilirubin NEG (NEG) Urine Urobilinogen 2.0 MG/DL (LESS THAN 2.0) Urine Leukocyte Esterase SMALL (NEG) Urine RBC /hpf (0-3) Urine WBC 7 /hpf (0-5) Urine Squamous Epithelial 37 /hpf (0-5) Cells Urine Bacteria OCC /hpf (NONE) Microscopic Urinalysis Comment CULT NOT INDICATED White Blood Count 7.9 TH/MM3 (4.0-11.0) Red Blood Count 4.89 MIL/MM3 (4.00-5.30) Hemoglobin 14.0 GM/DL (11.6-15.3) Hematocrit 42.0 % (35.0-46.0) Mean Corpuscular Volume 85.9 FL (80.0-100.0) Mean Corpuscular Hemoglobin 28.6 PG (27.0-34.0) Mean Corpuscular Hemoglobin 33.3 % Concent (32.0-36.0) Red Cell Distribution Width 13.6 % (11.6-17.2) Platelet Count 182 TH/MM3 (150-450) Mean Platelet Volume 8.5 FL (7.0-11.0) Neutrophils (%) (Auto) 75.3 % (16.0-70.0) Lymphocytes (%) (Auto) 17.6 % (9.0-44.0) Monocytes (%) (Auto) 5.2 % (0.0-8.0) Eosinophils (%) (Auto) 1.4 % (0.0-4.0) Basophils (%) (Auto) 0.5 % (0.0-2.0) Neutrophils # (Auto) 6.0 TH/MM3 (1.8-7.7) Lymphocytes # (Auto) 1.4 TH/MM3 (1.0-4.8) Monocytes # (Auto) 0.4 TH/MM3 (0-0.9) Eosinophils # (Auto) 0.1 TH/MM3 (0-0.4) Basophils # (Auto) 0.0 TH/MM3 (0-0.2) CBC Comment DIFF FINAL Differential Comment Prothrombin Time 11.4 SEC (9.8-11.6) Prothromb Time International 1.0 RATIO Ratio Activated Partial 33.5 SEC Thromboplast Time (24.3-30.1) Sodium Level 137 MEQ/L (136-145) Potassium Level 4.0 MEQ/L (3.5-5.1) Chloride Level 106 MEQ/L (98-107) Carbon Dioxide Level 24.3 MEQ/L (21.0-32.0) Anion Gap 7 MEQ/L (5-15) Blood Urea Nitrogen 6 MG/DL (7-18) Creatinine 0.83 MG/DL (0.50-1.00) Estimat Glomerular Filtration 74 ML/MIN (>89) Rate Random Glucose 88 MG/DL (74-106) Calcium Level 9.0 MG/DL (8.5-10.1) Total Bilirubin 0.7 MG/DL (0.2-1.0) Aspartate Amino Transf 16 U/L (15-37) (AST/SGOT) Alanine Aminotransferase 15 U/L (10-53) (ALT/SGPT) Alkaline Phosphatase 63 U/L (45-117) Total Protein 7.5 GM/DL (6.4-8.2) Albumin 3.5 GM/DL (3.4-5.0) Lipase 41 U/L (73-393) Laboratory Tests Test 12/30/16 12/30/16 13:00 13:45 Urine Color YELLOW (YELLW/STRAW) Urine Turbidity HAZY (CLEAR) Urine pH 8.5 (5.0-8.5) Urine Specific [place] 1.021 (1.002-1.035) Urine Protein 30 mg/dL (NEG-TRACE) Urine Glucose (UA) NEG mg/dL (NEG) Urine Ketones NEG mg/dL (NEG) Urine Occult Blood MOD (NEG) Urine Nitrite NEG (NEG) Urine Bilirubin NEG (NEG) Urine Urobilinogen 2.0 MG/DL (LESS THAN 2.0) Urine Leukocyte Esterase SMALL (NEG) Urine RBC /hpf (0-3) Urine WBC 7 /hpf (0-5) Urine Squamous Epithelial 37 /hpf (0-5) Cells Urine Bacteria OCC /hpf (NONE) Microscopic Urinalysis Comment CULT NOT INDICATED White Blood Count 7.9 TH/MM3 (4.0-11.0) Red Blood Count 4.89 MIL/MM3 (4.00-5.30) Hemoglobin 14.0 GM/DL (11.6-15.3) Hematocrit 42.0 % (35.0-46.0) Mean Corpuscular Volume 85.9 FL (80.0-100.0) Mean Corpuscular Hemoglobin 28.6 PG (27.0-34.0) Mean Corpuscular Hemoglobin 33.3 % Concent (32.0-36.0) Red Cell Distribution Width 13.6 % (11.6-17.2) Platelet Count 182 TH/MM3 (150-450) Mean Platelet Volume 8.5 FL (7.0-11.0) Neutrophils (%) (Auto) 75.3 % (16.0-70.0) Lymphocytes (%) (Auto) 17.6 % (9.0-44.0) Monocytes (%) (Auto) 5.2 % (0.0-8.0) Eosinophils (%) (Auto) 1.4 % (0.0-4.0) Basophils (%) (Auto) 0.5 % (0.0-2.0) Neutrophils # (Auto) 6.0 TH/MM3 (1.8-7.7) Lymphocytes # (Auto) 1.4 TH/MM3 (1.0-4.8) Monocytes # (Auto) 0.4 TH/MM3 (0-0.9) Eosinophils # (Auto) 0.1 TH/MM3 (0-0.4) Basophils # (Auto) 0.0 TH/MM3 (0-0.2) CBC Comment DIFF FINAL Differential Comment Prothrombin Time 11.4 SEC (9.8-11.6) Prothromb Time International 1.0 RATIO Ratio Activated Partial 33.5 SEC Thromboplast Time (24.3-30.1) Sodium Level 137 MEQ/L (136-145) Potassium Level 4.0 MEQ/L (3.5-5.1) Chloride Level 106 MEQ/L (98-107) Carbon Dioxide Level 24.3 MEQ/L (21.0-32.0) Anion Gap 7 MEQ/L (5-15) Blood Urea Nitrogen 6 MG/DL (7-18) Creatinine 0.83 MG/DL (0.50-1.00) Estimat Glomerular Filtration 74 ML/MIN (>89) Rate Random Glucose 88 MG/DL (74-106) Calcium Level 9.0 MG/DL (8.5-10.1) Total Bilirubin 0.7 MG/DL (0.2-1.0) Aspartate Amino Transf 16 U/L (15-37) (AST/SGOT) Alanine Aminotransferase 15 U/L (10-53) (ALT/SGPT) Alkaline Phosphatase 63 U/L (45-117) Total Protein 7.5 GM/DL (6.4-8.2) Albumin 3.5 GM/DL (3.4-5.0) Lipase 41 U/L (73-393) CT of the abdomen pelvis shows no evidence of stone or obstruction. There is no acute process. I reviewed all incidental findings with patient. Plan to discharge home with follow up with pcp. Signs and symptoms of when to return to ER was reviewed with patient in detail Diagnosis Primary Impression: Abdominal pain Qualified Code: R10.9 - Abdominal pain, unspecified abdominal location Additional Impressions: Nausea & vomiting Qualified Code: R11.2 - Non-intractable vomiting with nausea, unspecified vomiting type Flank pain Patient Instructions: General Instructions Additional Instructions: Please follow up with your primary care doctor Return to ER as needed Return to ER if symptoms worsen or progress Please drink plenty of fluids Med/Other Pt SpecificInfo: Prescription(s) given Scripts Ondansetron (Zofran)4 Mg Tab4 Mg PO Q6HR PRN (NAUSEA OR VOMITING) #20 TAB Ref 0 Prov:Sherlyn Shetty DO 12/30/16 Disposition: 01 DISCHARGE HOME Condition: Stable Sherlyn Shetty DO Dec 30, 2016 13:51
[2016-12-30 13:58] LABS: BASOPHIL % 0.5 % (0.0-2.0); EOSINOPHIL # 0.1 TH/MM3 (0-0.4); EOSINOPHIL % 1.4 % (0.0-4.0); HEMO FLAGS DIFF FINAL; LYMPH % 17.6 % (9.0-44.0); LYMPHOCYTE # 1.4 TH/MM3 (1.0-4.8); MEAN CELL VOLUME 85.9 FL (80.0-100.0); MEAN CORPUSCULAR HEMOGLOBIN 28.6 PG (27.0-34.0); MEAN CORPUSCULAR HGB CONC 33.3 % (32.0-36.0); MONO % 5.2 % (0.0-8.0); NEUT % 75.3 % (16.0-70.0); PLATELET COUNT 182 TH/MM3 (150-450); RED BLOOD COUNT 4.89 MIL/MM3 (4.00-5.30); RED CELL DISTRIBUTION WIDTH 13.6 % (11.6-17.2); WHITE BLOOD COUNT 7.9 TH/MM3 (4.0-11.0)
[2016-12-30 14:00] VITALS: BP 96/62; PULSE 79; RESP 17; O2SAT 97
[2016-12-30 14:10] LABS: APTT (PATIENT) 33.5 SEC (24.3-30.1); PROTHROMBIN TIME - PATIENT 11.4 SEC (9.8-11.6)
[2016-12-30 14:20] VITALS: O2SAT 97
[2016-12-30 14:26] LABS: ALKALINE PHOSPHATASE 63 U/L (45-117); TOTAL BILIRUBIN ADULT 0.7 MG/DL (0.2-1.0)
[2016-12-30 14:28] LABS: ALT (GPT) 15 U/L (10-53); ANION GAP 7 MEQ/L (5-15); AST (GOT) 16 U/L (15-37); BICARBONATE 24.3 MEQ/L (21.0-32.0); BLOOD UREA NITROGEN 6 MG/DL (7-18); CHLORIDE 106 MEQ/L (98-107); GLOMERULAR FILTRATION RATE 74 ML/MIN (>89); SODIUM (NA) 137 MEQ/L (136-145)
[2016-12-30] MEDS ORDERED: oxyCODONE/ACETAMINOPHEN 5 MG/325 MG TAB PO ONE (15:00)
--- NOTE | 2016-12-30 15:12 | RADRPT ---
EXAM DATE/TIME: 12/30/2016 14:36 [facility] COMPARISON: CT ABDOMEN & PELVIS W/O CONTRAST, October 28, 2016, 11:47. INDICATIONS : Right flank pain with nausea and vomiting. ORAL CONTRAST: No oral contrast ingested. RADIATION DOSE: 13.98 CTDIvol (mGy) MEDICAL HISTORY : Ruptured ovarian cyst. SURGICAL HISTORY : Cholecystectomy. Tubal ligation. ENCOUNTER: Initial ACUITY: 2 days PAIN SCALE: 5/10 LOCATION: Right flank area. TECHNIQUE: Volumetric scanning of the abdomen and pelvis was performed. Using automated exposure control and ad justment of the mA and/or kV according to patient size, radiation dose was kept as low as reasonably achievable to obtain optimal diagnostic quality images. DICOM format image data is available electro nically for review and comparison. FINDINGS: LOWER LUNGS: The visualized lower lungs are clear. LIVER: The portion of the liver identified is free of focal defects. The gallbladder is surgically absent. SPLEEN: Portion of the spleen visualized is unremarkable. PANCREAS: Within normal limits. ADRENAL GLANDS: Within normal limits. RIGHT KIDNEY: There are no calcifications, stone or mass. There is no hydronephrosis. LEFT KIDNEY: Normal in size and shape. Patent nephrocalcinosis is noted. There is no mass, stone, or hydronephro sis.. VASCULAR: There is no aortic aneurysm. BOWEL/MESENTERY: The stomach, small bowel, and colon demonstrate no acute abnormality. There is no free intraperitone al air or fluid. RETROPERITONEUM: There is no lymphadenopathy. PELVIC CONTENTS: Bladder is unremarkable. Surgical clip is seen in the right adnexa. Uterus is prominent. There is no free fluid. are unremarkable ABDOMINAL WALL: Within normal limits. INGUINAL: There is no lymphadenopathy or hernia. MUSCULOSKELETAL: Mild degenerative changes are noted. Minimal osteitis ileus condensens is noted on the left. CONCLUSION: Negative for stone or obstruction.. Faint calcification was described previously. This does not represent free floating stone. Tian Contreras MD FACR on December 30, 2016 at 15:02 Board Certified Radiologist. This report was verified electronically.
[2016-12-30] MEDS ORDERED: ONDANSETRON HCL 4 MG/2 ML VIAL IV PUSH ONE (15:15)
[2016-12-30] MEDS ORDERED: ZOFR4TAB PO (15:18)
== END 2016-12-30 15:47 | disposition home or self-care (01) ==
LOC: NEPD 12:23
DX: R10.9 Unspecified abdominal pain (principal); R11.2 Nausea with vomiting, unspecified; Z90.49 Acquired absence of other specified parts of digestive tract
CPT/HCPCS: 74176; 80053; 81001; 83690; 85025; 85610; 85730; 96361; 96374; 96375; 96376; 99285; J2405; J7030

== ENCOUNTER 2017-01-26 11:55 | Emergency (ER) | payer SELFPAY ==
[~2017-01-26] VITALS: Ht 154.9 cm; Wt 81.5 kg
[~2017-01-26 11:55] MED LIST changes: -CIPR250T52 PO; -PROM25TA10 PO; +ZOFR4TAB PO
[2017-01-26 12:06] VITALS: BP 140/66; PULSE 84; RESP 16; TEMP 98.2; O2SAT 98
--- NOTE | 2017-01-26 13:03 | PD ---
HPI Chief Complaint: Edema Time Seen by Provider: 12:59 Travel History International Travel<30 days: No Contact w/Intl Traveler<30days: No Traveled to known affect area: No History of Present Illness HPI 46-year-old female presents to the emergency department for evaluation of erythema and moderate edema of the dorsal aspect of the right hand, primarily around the second MCP. , states she has had surgery on that digit in the past. Believe she may have crusted a few days ago but she is uncertain. Pain is a 10 out of 10. Exacerbated with movement. Denies any alterations in sensation. No other symptoms to report. Patient adamantly denies IV drug use. PFSH Past Medical History Medical History: Denies Significant Hx Hx Anticoagulant Therapy: No Cardiovascular Problems: No Chemotherapy: No Cerebrovascular Accident: No Diabetes: No Diminished Hearing: No Respiratory: No ?: Not : 5 Para: 4 Miscarriage: 1 Ovarian Cysts: Yes (rupture) Tubal Ligation: Yes Past Surgical History Abdominal Surgery: Yes Cholecystectomy: Yes Gynecologic Surgery: Yes (left ovary and fallopian tube removal) Hysterectomy: No Social History Alcohol Use: No Tobacco Use: Yes (1 ppd) Substance Use: No Allergies-Medications (Allergen,Severity, Reaction): Coded Allergies: vancomycin (Unverified Allergy, Intermediate, 01/26/17) diclofenac (Unverified Allergy, Mild, 01/26/17) etodolac (Unverified Allergy, Mild, 01/26/17) flurbiprofen (Unverified Allergy, Mild, 01/26/17) ibuprofen (Unverified Allergy, Mild, 01/26/17) indomethacin (Unverified Allergy, Mild, 01/26/17) ketoprofen (Unverified Allergy, Mild, 01/26/17) ketorolac (Unverified Allergy, Mild, 01/26/17) naproxen (Unverified Allergy, Mild, 01/26/17) oxaprozin (Unverified Allergy, Mild, 01/26/17) Reported Meds & Prescriptions Reported Meds & Active Scripts Active Prednisone 20 Mg Tab 20 Mg PO BID 5 Days Keflex (Cephalexin) 500 Mg Capsule 500 Mg PO Q6H 5 Days Bactrim DS (Sulfamethoxazole-Trimethoprim) 800-160 Mg Tab 1 Tab PO BID Zofran (Ondansetron HCl) 4 Mg Tab 4 Mg PO Q6HR PRN Review of Systems Except as stated in HPI: all other systems reviewed are Neg Physical Exam Narrative GENERAL: Well-nourished, well-developed female patient, ambulatory and in no acute distress. SKIN: Focused skin assessment warm/dry. Scattered scabbed lesions of the extremities and face. HEAD: Normocephalic. EYES: No scleral icterus. No injection or drainage. NECK: Supple, trachea midline. No JVD or lymphadenopathy. CARDIOVASCULAR: Regular rate and rhythm without murmurs, gallops, or rubs. RESPIRATORY: Breath sounds equal bilaterally. No accessory muscle use. MUSCULOSKELETAL: No cyanosis. Slight erythema and edema at the base of the right second digit on the dorsal aspect of the hand. No deformity. Patient reports tenderness to palpation and pain exacerbated with movement. Cap refill within normal limits. BACK: Nontender without obvious deformity. No CVA tenderness. Data Data Last Documented VS Vital Signs Date Time Temp Pulse Resp B/P (MAP) Pulse Ox O2 Delivery O2 Flow Rate FiO2 01/26/17 14:05 63 16 98 Room Air 01/26/17 14:05 98.0 Orders Orders Hand, Complete ([id number]) (01/26/17 ) Acetaminophen (Tylenol) (01/26/17 13:15) MDM Medical Decision Making Medical Screen Exam Complete: Yes Emergency Medical Condition: Yes Medical Record Reviewed: Yes Differential Diagnosis Gout versus pseudogout versus cellulitis versus arthritis versus narcotic seeking Narrative Course 46-year-old female presents to the emergency department for evaluation of right hand pain and swelling. X-ray imaging confirms no acute bony normality. Patient is counseled on care. She'll be treated for a cellulitis. She'll be offered nonnarcotic pain control however patient is allergic to most NSAIDs. I have encouraged Tylenol use as directed on package. She agrees return immediately with any acute worsening of symptoms. Diagnosis Primary Impression: Cellulitis of right hand Referrals: Primary Care Physician Patient Instructions: Cellulitis (ED), General Instructions Additional Instructions: Ice and elevate to reduce pain swelling Follow up with your primary care provider Return to ED with acute worsening of symptoms Med/Other Pt SpecificInfo: Prescription(s) given Scripts Prednisone (Prednisone) 20 Mg Tab 20 MG PO BID for 5 Days, #10 TAB 0 Refills Prov: Arlen Doe 01/26/17 Cephalexin (Keflex) 500 Mg Capsule 500 MG PO Q6H for Infection for 5 Days, CAP 0 Refills Prov: Arlen Doe 01/26/17 Sulfamethoxazole-Trimethoprim (Bactrim DS) 800-160 Mg Tab 1 TAB PO BID for Infection, #20 TAB 0 Refills Prov: Arlen Doe 01/26/17 Disposition: 01 DISCHARGE HOME Condition: Stable Arlen Doe Jan 26, 2017 13:03
[2017-01-26] MEDS ORDERED: ACETAMINOPHEN 500 MG CPLT PO ONE (13:15)
--- NOTE | 2017-01-26 13:58 | RADRPT ---
EXAM DATE/TIME: 01/26/2017 13:35 [facility] COMPARISON: No previous studies available for comparison. INDICATIONS : Hit hand on microwave, pain with swelling and redness over index finger into metacarpal. MEDICAL HISTORY : None. SURGICAL HISTORY : None. ENCOUNTER: Initial ACUITY: 2 days PAIN SCORE: 10/10 LOCATION: Right hand. FINDINGS: Three view examination of the right hand demonstrates no soft tissue swelling, dislocation, or fractu re. The carpal bones appear intact. The interphalangeal and metacarpophalangeal joints are intact. Bony mineralization is normal. CONCLUSION: No acute disease. William Pritchett MD on January 26, 2017 at 13:51 Board Certified Radiologist. This report was verified electronically.
[2017-01-26 14:05] VITALS: PULSE 63; RESP 16; TEMP 98; O2SAT 98
[2017-01-26] MEDS ORDERED: BACT800T5 PO (14:33)
[2017-01-26] MEDS ORDERED: CEPH-460 PO (14:33)
[2017-01-26] MEDS ORDERED: PRED20 PO (14:34)
== END 2017-01-26 14:50 | disposition home or self-care (01) ==
LOC: NEPD 11:55
DX: L03.113 Cellulitis of right upper limb (principal)
CPT/HCPCS: 73130; 99284

== ENCOUNTER 2017-02-26 08:03 | Emergency (ER) | payer SELFPAY ==
[~2017-02-26] VITALS: Ht 175.3 cm; Wt 82.0 kg
[~2017-02-26 08:03] MED LIST changes: +BACT800T5 PO; +CEPH-460 PO; +PRED20 PO
[2017-02-26 08:11] VITALS: BP 99/68; PULSE 74; RESP 18; TEMP 98; O2SAT 99
[2017-02-26] MEDS ORDERED: ACETAMINOPHEN/HYDROcodone 325 MG/5 MG TAB PO ONE ×2 (08:15→09:30)
[2017-02-26 08:44] LABS: AUTOMATED NEUTROPHIL # 8.4 TH/MM3 (1.8-7.7); BASOPHIL % 0.4 % (0.0-2.0); EOSINOPHIL # 0.1 TH/MM3 (0-0.4); EOSINOPHIL % 1.1 % (0.0-4.0); HEMATOCRIT 45.1 % (35.0-46.0); HEMO FLAGS DIFF FINAL; LYMPH % 16.5 % (9.0-44.0); LYMPHOCYTE # 1.8 TH/MM3 (1.0-4.8); MEAN CELL VOLUME 82.4 FL (80.0-100.0); MEAN CORPUSCULAR HEMOGLOBIN 28.1 PG (27.0-34.0); MEAN CORPUSCULAR HGB CONC 34.1 % (32.0-36.0); MONO % 5.9 % (0.0-8.0); NEUT % 76.1 % (16.0-70.0); PLATELET COUNT 205 TH/MM3 (150-450); RED BLOOD COUNT 5.47 MIL/MM3 (4.00-5.30); RED CELL DISTRIBUTION WIDTH 14.9 % (11.6-17.2); WHITE BLOOD COUNT 11.1 TH/MM3 (4.0-11.0)
[2017-02-26 09:06] LABS: ANION GAP 10 MEQ/L (5-15); AST (GOT) 12 U/L (15-37); BICARBONATE 21.9 MEQ/L (21.0-32.0); BLOOD UREA NITROGEN 10 MG/DL (7-18); CHLORIDE 103 MEQ/L (98-107); GLOMERULAR FILTRATION RATE 72 ML/MIN (>89); POTASSIUM 3.8 MEQ/L (3.5-5.1); SODIUM (NA) 135 MEQ/L (136-145)
[2017-02-26 09:08] LABS: ALT (GPT) 11 U/L (10-53)
[2017-02-26 09:10] LABS: ALKALINE PHOSPHATASE 78 U/L (45-117); TOTAL BILIRUBIN ADULT 1.6 MG/DL (0.2-1.0)
[2017-02-26 09:15] LABS: ALCOHOL LESS THAN 3 MG/DL (0-5); CREATINE KINASE 54 U/L (26-192)
--- NOTE | 2017-02-26 10:15 | PD ---
HPI Chief Complaint: Psychiatric Symptoms Time Seen by Provider: 08:13 Travel History International Travel<30 days: No Contact w/Intl Traveler<30days: No Traveled to known affect area: No History of Present Illness HPI Patient is a 46-year-old female who comes in complaining of feeling suicidal. She says that she has been responsible for caring her 2 children, born on her own, and she just can't take it anymore. She says she is homeless she's been very depressed and it has been getting worse. She says that she feels like she wants to kill her self. She does not have a plan and denies having done anything to harm herself. She says she has never been on medication for depression. She also complains of pain all over. She has history of chronic pain and takes narcotics. She denies new injury. She is requesting pain medicine. PFSH Past Medical History Hx Anticoagulant Therapy: No Cardiovascular Problems: No Chemotherapy: No Cerebrovascular Accident: No Diabetes: No Diminished Hearing: No Genitourinary: Yes Respiratory: No Tetanus Vaccination: > 5 Years Influenza Vaccination: No ?: Not : 5 Para: 4 Miscarriage: 1 Ovarian Cysts: Yes (rupture) Tubal Ligation: Yes Past Surgical History Abdominal Surgery: Yes Cholecystectomy: Yes Gynecologic Surgery: Yes (left ovary and fallopian tube removal) Hysterectomy: No Social History Alcohol Use: No Tobacco Use: Yes (1 ppd) Substance Use: No (PT DENIES) Allergies-Medications (Allergen,Severity, Reaction): Coded Allergies: flurbiprofen (Verified Allergy, Severe, HIVES, 02/26/17) ketoprofen (Verified Allergy, Severe, HIVES, 02/26/17) ketorolac (Verified Allergy, Severe, HIVES, 02/26/17) naproxen (Verified Allergy, Severe, HIVES, 02/26/17) ibuprofen (Verified Allergy, Intermediate, HIVES, 02/26/17) indomethacin (Verified Allergy, Intermediate, HIVES, 02/26/17) oxaprozin (Verified Allergy, Intermediate, HIVES, 02/26/17) vancomycin (Verified Allergy, Intermediate, HIVES, 02/26/17) diclofenac (Verified Allergy, Mild, HIVES, 02/26/17) etodolac (Verified Allergy, Mild, HIVES, 02/26/17) Reported Meds & Prescriptions Reported Meds & Active Scripts Active No Active Prescriptions or Reported Medications Review of Systems Except as stated in HPI: all other systems reviewed are Neg General / Constitutional: No: Fever Eyes: No: Blurred Vision HENT: No: Headaches, Lightheadedness Cardiovascular: No: Chest Pain or Discomfort Respiratory: No: Shortness of Breath Gastrointestinal: No: Nausea, Vomiting, Abdominal Pain Musculoskeletal: Positive: Myalgias Skin: No Rash, No Itching Neurologic: No: Weakness, Dizziness Psychiatric: Positive: Depression, Suicidal Ideations Physical Exam Narrative GENERAL: Awake and alert, in no acute distress. SKIN: Focused skin assessment warm/dry. HEAD: Atraumatic. Normocephalic. EYES: Pupils equal and round. No scleral icterus. ENT: No nasal bleeding or discharge. Mucous membranes pink and moist. NECK: Trachea midline. No JVD. CARDIOVASCULAR: Regular rate and rhythm. No murmur appreciated. RESPIRATORY: No accessory muscle use. Clear to auscultation. Breath sounds equal bilaterally. GASTROINTESTINAL: Abdomen soft, non-tender, nondistended. MUSCULOSKELETAL: No obvious deformities. No clubbing. No cyanosis. No edema. NEUROLOGICAL: Awake and alert. No obvious cranial nerve deficits. Motor grossly within normal limits. Normal speech. PSYCHIATRIC: Tearful Data Data Last Documented VS Vital Signs Date Time Temp Pulse Resp B/P (MAP) Pulse Ox O2 Delivery O2 Flow Rate FiO2 02/26/17 10:28 16 02/26/17 08:15 74 02/26/17 08:11 98.0 99/68 (78) 99 Orders Orders Complete Blood Count With Diff (02/26/17 08:13) Comprehensive Metabolic Panel (02/26/17 08:13) Psych Screen (02/26/17 08:13) Drug Screen, Random Urine (02/26/17 08:13) Alcohol (Ethanol) (02/26/17 08:13) Creatine Kinase (Cpk) (02/26/17 08:13) Acetamin-Hydrocod 325-5 Mg ([place] 5-325 (02/26/17 08:15) Acetamin-Hydrocod 325-5 Mg ([place] 5-325 (02/26/17 09:30) Labs Laboratory Tests Test 02/26/17 08:10 02/26/17 08:20 White Blood Count 11.1 TH/MM3 Red Blood Count 5.47 MIL/MM3 Hemoglobin 15.4 GM/DL Hematocrit 45.1 % Mean Corpuscular Volume 82.4 FL Mean Corpuscular Hemoglobin 28.1 PG Mean Corpuscular Hemoglobin Concent 34.1 % Red Cell Distribution Width 14.9 % Platelet Count 205 TH/MM3 Mean Platelet Volume 9.5 FL Neutrophils (%) (Auto) 76.1 % Lymphocytes (%) (Auto) 16.5 % Monocytes (%) (Auto) 5.9 % Eosinophils (%) (Auto) 1.1 % Basophils (%) (Auto) 0.4 % Neutrophils # (Auto) 8.4 TH/MM3 Lymphocytes # (Auto) 1.8 TH/MM3 Monocytes # (Auto) 0.7 TH/MM3 Eosinophils # (Auto) 0.1 TH/MM3 Basophils # (Auto) 0.0 TH/MM3 CBC Comment DIFF FINAL Differential Comment Blood Urea Nitrogen 10 MG/DL Creatinine 0.85 MG/DL Random Glucose 97 MG/DL Total Protein 8.5 GM/DL Albumin 4.0 GM/DL Calcium Level 9.9 MG/DL Alkaline Phosphatase 78 U/L Aspartate Amino Transf (AST/SGOT) 12 U/L Alanine Aminotransferase (ALT/SGPT) 11 U/L Total Bilirubin 1.6 MG/DL Sodium Level 135 MEQ/L Potassium Level 3.8 MEQ/L Chloride Level 103 MEQ/L Carbon Dioxide Level 21.9 MEQ/L Anion Gap 10 MEQ/L Estimat Glomerular Filtration Rate 72 ML/MIN Total Creatine Kinase 54 U/L Ethyl Alcohol Level LESS THAN 3 MG/DL Urine Opiates Screen NEG Urine Barbiturates Screen NEG Urine Amphetamines Screen NEG Urine Benzodiazepines Screen NEG Urine Cocaine Screen POS Urine Cannabinoids Screen NEG MDM Medical Decision Making Medical Screen Exam Complete: Yes Emergency Medical Condition: Yes Medical Record Reviewed: Yes Differential Diagnosis Intoxication versus psychosis versus depression Narrative Course Patient is a 46-year-old female who comes in complaining of depression and feeling suicidal. Exam shows no acute abnormalities. Labs show no acute abnormalities other than a positive tox screen for cocaine. Patient is requesting pain medicine. She is given Lortab. She will be medically cleared for psychiatric evaluation. Patient seen by psychiatry and cleared for discharge. It was arranged for the patient to do to detox, however, at discharge, patient stated she did not want to go and asked that her cab pass be changed to a different location. She was told the cab pass was to only go to detox. She will be discharged. Given information about outpatient services. Diagnosis Primary Impression: Depression Qualified Codes: F32.9 - Major depressive disorder, single episode, unspecified Additional Impression: Opiate abuse, continuous Referrals: [facility] Patient Instructions: Depression (ED), General Instructions, Narcotic Abuse (ED ) Additional Instructions: Follow-up with Kofi aRmirez. Return to the ED as needed for any worsening symptoms. Scripts No Active Prescriptions or Reported Meds Disposition: 01 DISCHARGE HOME Condition: Stable Yumiko Acosta MD Feb 26, 2017 10:15
[2017-02-26 10:28] VITALS: RESP 16
--- NOTE | 2017-02-26 11:22 | PD ---
History of Present Illness Chief Complaint: Psychiatric Symptoms Time Seen by Provider: 11:00 Travel History International Travel<30 Days: No Contact w/Intl Traveler<30days: No Known affected area: No Legal Status Legal Status: Voluntary History of Present Illness: 46-year-old female, self-admitted cocaine abuser, making suicidal statements and other manipulative remarks to obtain narcotics. At the time she is evaluated at bedside by this physician, she is willing to accept treatment at [facility] for her drug abuse. She is willing to go there voluntarily. She does not have any suicidal or homicidal ideation, plan or intent at this time. She has no psychotic symptoms. Her cognition is intact. This physician does feel the patient's primary problem is drug abuse and [facility]'s the licensed facility for treatment. PFSH Past Medical History Hx Anticoagulant Therapy: No Cardiovascular Problems: No Chemotherapy: No Cerebrovascular Accident: No Diabetes: No Diminished Hearing: No Genitourinary: Yes Respiratory: No Tetanus Vaccination: > 5 Years Influenza Vaccination: No ?: Not : 5 Para: 4 Miscarriage: 1 Ovarian Cysts: Yes (rupture) Tubal Ligation: Yes Past Surgical History Abdominal Surgery: Yes Cholecystectomy: Yes Gynecologic Surgery: Yes (left ovary and fallopian tube removal) Hysterectomy: No Psychiatric History Psychiatric History Hx Psychiatric Treatment: Denies History of Inpatient Treatment: No Guns or firearms in home: No Social History Hx Alcohol Use: No Hx Tobacco Use: Yes (1 ppd) Hx Substance Use: No (PT DENIES) Substance Use Type: Crack Hx of Substance Use Treatment: Yes Allergies-Medications (Allergen,Severity, Reaction): Coded Allergies: flurbiprofen (Verified Allergy, Severe, HIVES, 02/26/17) ketoprofen (Verified Allergy, Severe, HIVES, 02/26/17) ketorolac (Verified Allergy, Severe, HIVES, 02/26/17) naproxen (Verified Allergy, Severe, HIVES, 02/26/17) ibuprofen (Verified Allergy, Intermediate, HIVES, 02/26/17) indomethacin (Verified Allergy, Intermediate, HIVES, 02/26/17) oxaprozin (Verified Allergy, Intermediate, HIVES, 02/26/17) vancomycin (Verified Allergy, Intermediate, HIVES, 02/26/17) diclofenac (Verified Allergy, Mild, HIVES, 02/26/17) etodolac (Verified Allergy, Mild, HIVES, 02/26/17) Reported Meds & Prescriptions Reported Meds & Active Scripts Active No Active Prescriptions or Reported Medications Review of Systems Except as stated in HPI: all other systems reviewed are Neg Mental Status Examination Appearance: Appropriate Consciousness: Alert Orientation: x4 Motor Activity: Normal gait Speech: Unremarkable Language: Adequate Fund of Knowledge: Adequate Attention and Concentration: Adequate Memory: Unremarkable Mood: Appropriate Affect: Appropriate Thought Process & Associations: Intact Thought Content: Appropriate Hallucination Type: None Delusion Type: None Suicidal Ideation: No Suicidal Plan: No Suicidal Intention: No Homicidal Ideation: No Homicidal Plan: No Homicidal Intention: No Insight: Adequate Judgment: Adequate MDM Medical Decision Making Medical Record Reviewed: Yes Assessment/Plan Patient seen and interviewed at bedside. Medical record reviewed. Case discussed with Rustam, case management. Patient felt to be cocaine abuser. Not currently suicidal but may act unpredictably and dangerously at any time to manipulate for what she wants. This cannot be the determining factor in her treatment. This physician feels her best treatment at this time is for substance abuse. She is not psychotic and her cognition is intact. Hopefully, we are able to provide transportation from this emergency department to [facility] for further treatment. Patient requests this transportation also. Orders Orders Complete Blood Count With Diff (02/26/17 08:13) Comprehensive Metabolic Panel (02/26/17 08:13) Psych Screen (02/26/17 08:13) Drug Screen, Random Urine (02/26/17 08:13) Alcohol (Ethanol) (02/26/17 08:13) Creatine Kinase (Cpk) (02/26/17 08:13) Acetamin-Hydrocod 325-5 Mg ([place] 5-325 (02/26/17 08:15) Acetamin-Hydrocod 325-5 Mg ([place] 5-325 (02/26/17 09:30) Results Vital Signs Date Time Temp Pulse Resp B/P (MAP) Pulse Ox O2 Delivery O2 Flow Rate FiO2 02/26/17 10:28 16 02/26/17 09:22 17 02/26/17 08:15 74 18 02/26/17 08:11 98.0 74 18 99/68 (78) 99 Laboratory Tests Test 02/26/17 08:10 02/26/17 08:20 White Blood Count 11.1 Red Blood Count 5.47 Hemoglobin 15.4 Hematocrit 45.1 Mean Corpuscular Volume 82.4 Mean Corpuscular Hemoglobin 28.1 Mean Corpuscular Hemoglobin Concent 34.1 Red Cell Distribution Width 14.9 Platelet Count 205 Mean Platelet Volume 9.5 Neutrophils (%) (Auto) 76.1 Lymphocytes (%) (Auto) 16.5 Monocytes (%) (Auto) 5.9 Eosinophils (%) (Auto) 1.1 Basophils (%) (Auto) 0.4 Neutrophils # (Auto) 8.4 Lymphocytes # (Auto) 1.8 Monocytes # (Auto) 0.7 Eosinophils # (Auto) 0.1 Basophils # (Auto) 0.0 CBC Comment DIFF FINAL Differential Comment Blood Urea Nitrogen 10 Creatinine 0.85 Random Glucose 97 Total Protein 8.5 Albumin 4.0 Calcium Level 9.9 Alkaline Phosphatase 78 Aspartate Amino Transf (AST/SGOT) 12 Alanine Aminotransferase (ALT/SGPT) 11 Total Bilirubin 1.6 Sodium Level 135 Potassium Level 3.8 Chloride Level 103 Carbon Dioxide Level 21.9 Anion Gap 10 Estimat Glomerular Filtration Rate 72 Total Creatine Kinase 54 Ethyl Alcohol Level LESS THAN 3 Urine Opiates Screen NEG Urine Barbiturates Screen NEG Urine Amphetamines Screen NEG Urine Benzodiazepines Screen NEG Urine Cocaine Screen POS Urine Cannabinoids Screen NEG Diagnosis Primary Impression: Cocaine abuse Prescriptions No Active Prescriptions or Reported Meds Condition: Stable Pop Wise MD Feb 26, 2017 11:22
[2017-02-26 12:15] VITALS: BP 130/77; TEMP 97.8
== END 2017-02-26 12:15 | disposition home or self-care (01) ==
LOC: NEPC 08:03
DX: F32.9 Major depressive disorder, single episode, unspecified (principal); F14.10 Cocaine abuse, uncomplicated; G89.29 Other chronic pain; F17.200 Nicotine dependence, unspecified, uncomplicated
CPT/HCPCS: 80053; 80307; 82550; 85025; 99284